=== PATIENT | male | born 1970 | race Caucasian/White ===

== ENCOUNTER 2020-04-03 09:00 | Emergency (ER) | payer OTHER ==
[~2020-04-03] VITALS: Ht 182.9 cm; Wt 86.2 kg
--- NOTE | 2020-04-03 09:07 | NUR ---
BIBA RA 88 Escorted by [employer] Officer [phone] [id number] "was sleeping in garage when security woke him up started getting agitated +Meth/Hallucination" to ER bed 14, hooked to monitor, changed to hosp gown, warm blanket provided. awaiting MD betancur. sitter at bedside for safety
--- NOTE | 2020-04-03 09:10 | NUR ---
Dr Burton at bedside
[2020-04-03] MEDS ORDERED: OLANZAPINE 10 MG VIAL IM ONE ×2 (09:19→09:30)
[2020-04-03 09:45] LABS: BASOPHILS # (AUTO) 0.1 /CMM (0.0-0.2); BASOPHILS % (AUTO) 1.2 % (0.0-2.0); HEMATOCRIT 42 % (39-51); LYMPHOCYTES # (AUTO) 1.3 /CMM (0.8-4.8); LYMPHOCYTES % (AUTO) 29.3 % (20.0-44.0); MEAN CORPUSCULAR HGB CONC 34 g/dl (31.0-36.0); MEAN CORPUSCULAR VOLUME 91 fL (80-96); MONOCYTES # (AUTO) 0.5 /CMM (0.1-1.30); MONOCYTES % (AUTO) 11.6 % (2.0-12.0); NEUTROPHILS # (AUTO) 2.5 /CMM (1.8-8.9); NEUTROPHILS % (AUTO) 55.9 % (43.0-81.0); PLATELET COUNT (AUTO) 389 /CMM (150-450); RED BLOOD CELL COUNT(AUTO) 4.57 MIL/uL (4.5-6.0); WHITE BLOOD COUNT (AUTO) 4.4 K/uL (4.3-11.0)
[2020-04-03 09:50] LABS: BILIRUBIN,URINE Negative (NEGATIVE); COLOR,URINE YELLOW (YELLOW); LEUKOCYTE ESTERASE ,URINE Negative (NEGATIVE); NITRITE, URINE Negative (NEGATIVE); PROTEIN,URINE Negative (NEGATIVE); UGLUCOSE Negative (NEGATIVE); UROBILINOGEN,URINE 0.2 EU/dL (0.2)
[2020-04-03 09:53] LABS: CALCIUM, SERUM 8.7 mg/dL (8.5-10.1); CARBON DIOXIDE 29 mmol/L (21-32); CHLORIDE 103 mmol/L (98-107); CREATININE 1.2 mg/dL (0.6-1.3); GLUCOSE 86 mg/dL (74-106); POTASSIUM 3.5 mmol/L (3.5-5.1); SODIUM SERUM 141 mmol/L (136-145); UREA NITROGEN, BLOOD 15 mg/dL (7-18)
[2020-04-03 10:05] LABS: ACETAMINOPHEN 0 ug/ml (10-30); ALANINE AMINOTRANSFERASE 41 U/L (12-78); ALBUMIN 3.8 g/dL (3.4-5.0); ALCOHOL, BLOOD < 3 mg/dL (0-0); ALKALINE PHOSPHATASE 97 U/L (46-116); ASPARTATE AMINOTRANSFERASE 50 U/L (15-37); BILIRUBIN,DIRECT 0.1 mg/dL (0.0-0.2); BILIRUBIN,TOTAL 0.7 mg/dL (0.2-1.0); TOTAL PROTEIN, SERUM 7.7 g/dL (6.4-8.2)
[2020-04-03 10:08] LABS: BACTERIA,URINE Rare /HPF (None Seen); RBC,URINE 0-2 /HPF (0-2); SQUAMOUS EPITHELIAL CELL,UR Rare /HPF (None Seen); WBC,URINE 0-3 /HPF (0-3)
--- NOTE | 2020-04-03 12:12 | NUR ---
[employer] consult: SW consult request by ER staff for a 49 year old male. SW met with pt at ER bed 14 with RN (Osvaldo) at 1105 am to assist with patient. Per RN (Osvaldo)MD (Micheal) medicated pt. SW is unable to interview because pt is sleeping and refuses to answer questions. Pt is noncompliant and dosing on and off. Pt toxicology is positive for (amphetamine) SW spoke to RN (Osvaldo) to contact social sciences department chair once the patient is ready to do an assessment. Plan: SW will follow up with the patient is agreeable to participate in interview and assessment.
--- NOTE | 2020-04-03 18:46 | NUR ---
pt has been awake. meal provided. ambulatory on steady gait. pt verbalized that he does not hear voices nor feeling being bitten. pt is denies being suicidal nor homicidal.
[2020-04-03 18:47] VITALS: BP 143/78
--- NOTE | 2020-04-03 18:56 | NUR ---
Patient discharged to home in stable condition. Written and verbal after care instructions given. Patient verbalizes understanding of instruction. Pt ambulatory with a steady gait
== END 2020-04-03 19:17 | disposition home or self-care (01) ==
LOC: ER 09:02
DX: F15.121 Other stimulant abuse with intoxication delirium (principal); Z82.49 Family history of ischemic heart disease and other diseases of the circulatory system; Z59.0 Homelessness; Z20.822 Contact with and (suspected) exposure to COVID-19
CPT/HCPCS: 36415; 80048; 80076; 80299; 80307; 80320; 81001; 85025; 87426; 96372; 99285; C9803; J3490; G0480